=== PATIENT | male | born 1985 | race Two or more races ===

== ENCOUNTER 2021-03-26 22:52 | Emergency (ER) | payer OTHER ==
[~2021-03-26] VITALS: Ht 177.8 cm; Wt 72.6 kg
--- NOTE | 2021-03-26 23:14 | NUR ---
PT CAME IN C/O RIGHT CLAVICLE INJURY HAPPENEED 2 WKS AGO. PT A/O X4. DENIES ANY PAIN.PT PLACED ON MONITOR.
[2021-03-27 00:39] VITALS: BP 118/76
--- NOTE | 2021-03-27 00:41 | NUR ---
Patient discharged to home in stable condition. Written and verbal after care instructions given. Patient verbalizes understanding of instruction.
== END 2021-03-27 00:43 | disposition home or self-care (01) ==
LOC: ER 22:52
DX: M54.2 Cervicalgia (principal); M79.641 Pain in right hand; Z88.0 Allergy status to penicillin; Z60.2 Problems related to living alone; Y08.89XA Assault by other specified means, initial encounter; Y93.89 Activity, other specified; Y92.89 Other specified places as the place of occurrence of the external cause; Y99.0 Civilian activity done for income or pay
CPT/HCPCS: 73000-TC; 73130-TC

== ENCOUNTER 2024-09-11 05:11 | Emergency (ER) | payer SELFPAY ==
[~2024-09-11] VITALS: Ht 177.8 cm; Wt 79.4 kg
[2024-09-11] MEDS ORDERED: ONDANSETRON HCL/PF 4 MG/2 ML VIAL ONE (05:19)
[2024-09-11] MEDS: IV NS 0.9% 1,000 ML BAG IV ONE (05:19)
[2024-09-11] MEDS ORDERED: MORPHINE SULFATE INJ 4 MG/ML DISP.SYRIN ONE (05:19)
[2024-09-11] MEDS: ONDANSETRON HCL/PF 4 MG/2 ML VIAL IVP ONE (05:25)
[2024-09-11] MEDS: MORPHINE SULFATE INJ 2 MG/ML DISP.SYRIN IV ONE (05:25)
[2024-09-11 05:29] VITALS: BP 130/76; TEMP 98.2; O2SAT 99
== END 2024-09-11 05:41 | disposition short-term general hospital (02) ==
LOC: EDUNIT# 05:11 → ER 05:15
DX: S31.600A Unspecified open wound of abdominal wall, right upper quadrant with penetration into peritoneal cavity, initial encounter (principal); Z88.0 Allergy status to penicillin; Z60.2 Problems related to living alone; W10.9XXA Fall (on) (from) unspecified stairs and steps, initial encounter; Y93.89 Activity, other specified; Y92.89 Other specified places as the place of occurrence of the external cause; Y99.8 Other external cause status
CPT/HCPCS: J2270; J2405

== ENCOUNTER 2025-03-17 23:17 | Emergency (ER) | payer OTHER ==
[~2025-03-17] VITALS: Ht 177.8 cm; Wt 70.3 kg
[2025-03-18 00:18] VITALS: BP 112/64; TEMP 98.9; O2SAT 100
--- NOTE | 2025-03-18 00:20 | NUR ---
CAME W CC OF CELLULITIS ON RIGHT WRIST. 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 AOX4. ABLE TO MAKE NEEDS KNOWN. ASSISTED TO ROOM 19, WAITING FOR MD HOFFMAN
--- NOTE | 2025-03-18 00:23 | NUR ---
SEEN AND EXAMINED BY DR COLEMAN
[2025-03-18] MEDS ORDERED: DOXY-326 PO (00:29)
[2025-03-18] MEDS ORDERED: CEPH-570 PO (00:29)
[2025-03-18] MEDS ORDERED: KETOROLAC TROMETHAMINE 15 MG/ML VIAL ONE (00:43)
[2025-03-18] MEDS ORDERED: CEPHALEXIN MONOHYDRATE 500 MG CAPSULE PO ONE (00:44)
[2025-03-18] MEDS ORDERED: DOXYCYCLINE HYCLATE (100 MG) 100 MG TABLET ONE (00:44)
[2025-03-18] MEDS: KETOROLAC TROMETHAMINE 15 MG/ML VIAL IM ONE (00:51)
[2025-03-18] MEDS: CEPHALEXIN MONOHYDRATE 500 MG CAPSULE PO ONE (00:52)
[2025-03-18] MEDS: DOXYCYCLINE HYCLATE (100 MG) 100 MG TABLET PO ONE (00:52)
--- NOTE | 2025-03-18 00:53 | NUR ---
Patient discharged to home in stable condition. Written and verbal after care instructions given. Patient verbalizes understanding of instruction.
== END 2025-03-18 01:00 | disposition home or self-care (01) ==
LOC: ER 23:26
DX: L03.113 Cellulitis of right upper limb (principal); Z88.0 Allergy status to penicillin; Z60.2 Problems related to living alone
CPT/HCPCS: 99284; 96372; J1885

== ENCOUNTER 2025-03-20 02:12 | Emergency (ER) | payer OTHER ==
[~2025-03-20] VITALS: Ht 177.8 cm; Wt 70.3 kg
[~2025-03-20 02:12] MED LIST: CEPH-570 PO; DOXY-326 PO
[2025-03-20 02:52] VITALS: TEMP 98.7
[2025-03-20 03:25] VITALS: BP 123/69; O2SAT 99
[2025-03-20 03:58] LABS: PLATELET COUNT (AUTO) 261 K/uL (150-450); RED BLOOD CELL COUNT(AUTO) 4.32 MIL/uL (4.5-6.0); RED CELL DISTRIBUTION WIDTH 18.2 % (11.5-15.0); WHITE BLOOD COUNT (AUTO) 8.9 K/uL (4.3-11.0)
[2025-03-20] MEDS ORDERED: KETOROLAC TROMETHAMINE 15 MG/ML VIAL ONE (04:06)
[2025-03-20] MEDS ORDERED: VANCOMYCIN 1 GM /D5W 250 ML PB IV ONE (04:06)
[2025-03-20 04:07] LABS: CALCIUM, SERUM 9.1 mg/dL (8.5-10.1); CREATININE 0.9 mg/dL (0.6-1.3); SODIUM SERUM 137.0 mmol/L (136-145); UREA NITROGEN, BLOOD 14.0 mg/dL (7-18)
[2025-03-20 04:13] LABS: ASPARTATE AMINOTRANSFERASE 18.0 U/L (15-37); TOTAL PROTEIN, SERUM 8.2 g/dL (6.4-8.2)
[2025-03-20] MEDS: KETOROLAC TROMETHAMINE 15 MG/ML VIAL IV ONE (04:15)
[2025-03-20] MEDS: VANCOMYCIN 1 GM in IV D5W 250 ML IV ONE (04:15)
== END 2025-03-20 05:01 | disposition left against medical advice (07) ==
LOC: ER 02:23
DX: L03.90 Cellulitis, unspecified (principal); Z79.2 Long term (current) use of antibiotics; Z86.14 Personal history of Methicillin resistant Staphylococcus aureus infection; Z88.0 Allergy status to penicillin
CPT/HCPCS: 99284; 96365; 96375; 73110; 85025; 80048; 87040 ×2; 83605; 80076; 36415; J1885; J3373; A4223